=== PATIENT | male | born 2000 | race Two or more races ===

== ENCOUNTER 2025-07-03 16:12 | Emergency (ER) | payer MEDICAID, OTHER ==
[~2025-07-03] VITALS: Ht 172.7 cm; Wt 97.3 kg
[2025-07-03 16:13] VITALS: BP 133/95; PULSE 102; RESP 16; TEMP 98.6; O2SAT 94
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
[2025-07-03 18:06] LABS: Urine Protein, UAD 1+ (Negative)
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
[2025-07-03] MEDS ORDERED: IBUP-1455 PO (18:50)
[2025-07-03] MEDS ORDERED: CIPR-173 PO (18:50)
== END 2025-07-03 19:06 | disposition home or self-care (01) ==
LOC: ER 16:14
DX: S01.81XA Laceration without foreign body of other part of head, initial encounter (principal); S20.229A Contusion of unspecified back wall of thorax, initial encounter; S09.8XXA Other specified injuries of head, initial encounter; N39.0 Urinary tract infection, site not specified; V89.2XXA Person injured in unspecified motor-vehicle accident, traffic, initial encounter; Y93.89 Activity, other specified; Y92.488 Other paved roadways as the place of occurrence of the external cause; Y99.8 Other external cause status
CPT/HCPCS: 72070; 72100; 81001